=== PATIENT | male | born 1965 | race Caucasian/White ===

== ENCOUNTER 2021-03-05 13:19 | Emergency (ER) | payer BC, OTHER ==
[2021-03-05 13:39] VITALS: BP 168/99; PULSE 70; TEMP 98.6; BMI 32.5
[2021-03-05] MEDS ORDERED: METOCLOPRAMIDE HCL INJECTION 10 MG/2 ML VIAL IVPB ONE (14:35)
[2021-03-05] MEDS ORDERED: MECLIZINE HCL 12.5 MG TABLET PO ONE (14:35)
[2021-03-05] MEDS ORDERED: LACTATED RINGERS SOLUTION 1000 ML INFUS.BAG IV ONE (14:35)
[2021-03-05] MEDS ORDERED: MECLIZINE HCL 12.5 MG TABLET ONE (14:50)
[2021-03-05] MEDS ORDERED: METOCLOPRAMIDE HCL INJECTION 10 MG/2 ML VIAL ONE (14:50)
[2021-03-05 16:18] LABS: BASO % 0.2 % (0-2.0); EOS % 0.7 % (0-4.5); HEMATOCRIT 43.6 % (35.4-49); HEMOGLOBIN 14.3 GM/dL (11.7-16.9); LYMPH % 14.5 % (8-40); MCH 26.5 pg (25.7-33.7); MCHC 32.9 g/dl (32.0-35.9); MEAN CELL VOLUME 80.5 fl (80-96); MEAN PLT VOLUME 9.6 fl (7.5-11.1); MONO % 5.5 % (3.8-10.2); NEUT % 79.1 % (42.8-82.8); PLATELET COUNT 181 K/MM3 (134-434); RBC 5.41 M/mm3 (4.00-5.60); RDW 15.1 % (11.9-15.9); WHITE BLOOD COUNT 9.4 K/mm3 (4.0-10.0)
[2021-03-05 16:34] LABS: CALCIUM 9.4 mg/dL (8.5-10.1)
[2021-03-05 16:36] LABS: BLOOD UREA NITROGEN 15.1 mg/dL (7-18)
[2021-03-05 16:38] LABS: CREATININE 0.9 mg/dL (0.55-1.3)
[2021-03-05 16:40] LABS: BILIRUBIN,TOTAL 0.4 mg/dL (0.2-1); TOT PROT 7.7 g/dl (6.4-8.2)
== END 2021-03-05 17:07 | disposition home or self-care (01) ==
LOC: JER 13:19
PROC: 3E033GC Introduction of Other Therapeutic Substance into Peripheral Vein, Percutaneous Approach (ICD-10-PCS; principal; 2021-03-05)
DX: R42 Dizziness and giddiness (principal)
CPT/HCPCS: 36415; 80053; 85025; 93005; 93010; 99284-25